=== PATIENT | male | born 1975 | race African-American/Black ===

== ENCOUNTER 2021-01-03 02:02 | Emergency (ER) | payer BC ==
[2021-01-03 03:13] VITALS: BP 156/83; PULSE 91; TEMP 98.9; BMI 40.2
[2021-01-03 04:33] LABS: BASO % 0.7 % (0-2.0); EOS % 2.7 % (0-4.5); HEMATOCRIT 41.6 % (35.4-49); LYMPH % 26.4 % (8-40); MCH 28.5 pg (25.7-33.7); MCHC 33.7 g/dl (32.0-35.9); MEAN CELL VOLUME 84.6 fl (80-96); MEAN PLT VOLUME 7.6 fl (7.5-11.1); MONO % 9.7 % (3.8-10.2); NEUT % 60.5 % (42.8-82.8); PLATELET COUNT 362 K/MM3 (134-434); RBC 4.92 M/mm3 (4.00-5.60); RDW 14.8 % (11.9-15.9); WHITE BLOOD COUNT 7.6 K/mm3 (4.0-10.0)
[2021-01-03 04:51] LABS: CHLORIDE 105 mmol/L (98-107); POTASSIUM 3.6 mmol/L (3.5-5.1); SODIUM 139 mmol/L (136-145)
[2021-01-03 04:53] LABS: CALCIUM 9.2 mg/dL (8.5-10.1)
[2021-01-03 04:54] LABS: ALBUMIN 3.7 g/dl (3.4-5.0); ANION GAP 9 MMOL/L (8-16); CO2 25 mmol/L (21-32); GLUCOSE,RANDOM 102 mg/dL (74-106)
[2021-01-03 04:57] LABS: CREATININE 0.8 mg/dL (0.55-1.3); SGOT/AST 16 U/L (15-37); SGPT/ALT 36 U/L (13-61)
[2021-01-03 04:58] LABS: BILIRUBIN,TOTAL 0.3 mg/dL (0.2-1); TOT PROT 7.6 g/dl (6.4-8.2)
[2021-01-03 05:00] LABS: ALK PHOS 99 U/L (45-117)
== END 2021-01-03 07:15 | disposition home or self-care (01) ==
LOC: JER 02:02
DX: M25.512 Pain in left shoulder (principal)
CPT/HCPCS: 36415; 80053; 82550; 82553; 84484; 85025; 93005; 93010; 99285-25

== ENCOUNTER 2021-01-07 11:53 | Day surgery (SDC) | payer BC, OTHER ==
[2020-12-30 13:09] VITALS: BMI 40.2
[2021-01-07] MEDS ORDERED: ONDANSETRON 4 MG/2 ML VIAL IVPUSH PRN ×2 (13:26→16:27)
[2021-01-07] MEDS ORDERED: oxyCODONE HCL 5 MG TABLET PO PRN ×3 (13:26→16:27)
[2021-01-07] MEDS ORDERED: LACTATED RINGERS SOLUTION 1,000 ML IV SCH (13:30)
[2021-01-07] MEDS ORDERED: DEXAMETHASONE SOD PHOSPHATE 10 MG/1 ML VIAL ONE (13:41)
[2021-01-07] MEDS ORDERED: BUPIVACAINE HCL/PF 0.5% (5 MG/ML) 30 ML VIAL IJ ONE (13:42)
[2021-01-07] MEDS ORDERED: MIDAZOLAM HCL 2 MG/2 ML SINGLE DOSE VIAL ONE (13:42)
[2021-01-07] MEDS ORDERED: SUCCINYLCHOLINE CHLORIDE 200 MG/10 ML SYRINGE ONE (14:00)
[2021-01-07] MEDS ORDERED: PROPOFOL 20 ML ONE (14:00)
[2021-01-07] MEDS ORDERED: ceFAZolin SODIUM 1 GM VIAL ONE (14:56)
[2021-01-07] MEDS ORDERED: PROMETHAZINE HCL 25 MG/1 ML VIAL IVPUSH PRN (16:27)
[2021-01-07 17:24] VITALS: TEMP 98
[2021-01-07 18:40] VITALS: BP 133/84; PULSE 85
== END 2021-01-07 18:30 | disposition home or self-care (01) ==
LOC: FASU 11:53
PROVIDERS: ATTEND Orthopaedic Surgery
PROC: 0QBM0ZZ Excision of Left Tarsal, Open Approach (ICD-10-PCS; 2021-01-07)
PROC: 0LQP0ZZ Repair Left Lower Leg Tendon, Open Approach (ICD-10-PCS; principal; 2021-01-07 15:13)
DX: M76.62 Achilles tendinitis, left leg (principal); M77.32 Calcaneal spur, left foot; M21.6X2 Other acquired deformities of left foot; S86.012A Strain of left Achilles tendon, initial encounter; X58.XXXA Exposure to other specified factors, initial encounter; Y93.9 Activity, unspecified; Y92.9 Unspecified place or not applicable
CPT/HCPCS: 27650; 28119; C1713; 73610-TC-LT-FY; 88304-TC; 94760; J1100

== ENCOUNTER 2021-01-08 04:02 | Emergency (ER) | payer BC, OTHER ==
[2021-01-08 04:32] VITALS: BMI 41.2
[2021-01-08 06:12] VITALS: BP 155/77; PULSE 96; TEMP 98.4
== END 2021-01-08 07:06 | disposition home or self-care (01) ==
LOC: JER 04:02
DX: R20.2 Paresthesia of skin (principal)
CPT/HCPCS: 99281-25